=== PATIENT | female | born 1990 | race Caucasian/White ===

== ENCOUNTER 2016-11-30 19:10 | Emergency (ER) | payer OTHER ==
[~2016-11-30] VITALS: Ht 177.8 cm; Wt 118.2 kg
[~2016-11-30 19:10] MED LIST: ALBU8.5H4 IH; BUPR1FIL3 SL
[2016-11-30 19:39] VITALS: BP 139/86; PULSE 83; RESP 16; O2SAT 97
[2016-11-30 20:58] LABS: APPEARANCE,URINE CLEAR (CLEAR,HAZY); COLOR,URINE ORANGE (YELLOW)
[2016-11-30 21:04] LABS: BASOPHILS % (AUTO) 0.3 % (0-3); EOSINOPHILS % (AUTO) 0.8 % (0-5); MONOCYTES % (AUTO) 4.4 % (4-12); Mean Corpuscular Hemoglobin 27.9 pg (27.0-35.0); Mean Corpuscular Volume 80.4 fL (81-100); NEUTROPHILS % (AUTO) 53.9 % (40-74); Platelet Count 232 bil/L (150-400)
--- NOTE | 2016-11-30 21:08 | ED.REPORT ---
HPI-Abd Pain F Under 41 Date of Service November 30, 2016 ED Provider: Luciano Brower MD A 25 year old female with a history of asthma and opioid dependence in remission on Suboxone presents to the ED with right flank pain onset three hours ago. The patient also reports fever (high of 102), diaphoresis, dizziness , and nausea currently. She denies vomiting or other symptoms. The patient was seen at Urgent Care yesterday after "a couple of days of not feeling well" and was diagnosed with a UTI. She was placed on Ceftin and Pyridium, which she has taken with no relief. Nursing Notes Stated Complaint: PAIN, FEVER, DIZZY Chief Complaint: Female Abdominal Pain Nursing Notes Reviewed: Yes Allergies: Coded Allergies: No Known Allergies (Verified , 01/14/15) Scheduled Buprenorphine HCl/Naloxone HCl (Suboxone 8 mg-2 mg Sl Film) 1 Each Film 0.5 EACH SL BID Scheduled PRN Albuterol HFA (Albuterol HFA) 8.5 Gm Hfa.aer.ad 2 PUFF IH Q4 PRN PRN For Shortness of Breath General Time Seen by MD: 21:07 Chief Complaint Flank pain right Hx Obtained From: Patient Arrived By: Walk-in Sudden in Onset?: No Onset Occurred: 1 - 4 hours ago Symptom Duration: Since onset Location: : Flank right Quality: Painful Severity: Current: Moderate Severity: Maximum: Moderate Associated with: Reports: Fever, Nausea Pertinent Negative: Relieved by nothing Recent Healthcare: Recent doctor visit Past Medical History Past Medical History Opioid dependence in remission on Suboxone Reports: Asthma Past Surgical History Reports: Cholecystectomy Smoking History Light Tobacco Smoker Social History Alcohol Use: "Social" Drug Use: In recovery, IV drugs Other Social History: Good social support, Lives with parents Ambulatory Status Independent Review of Systems Constitutional: Reports: Fever (High of 102) Respiratory: Denies: Non-productive cough, Shortness of breath GI: Reports: Nausea, Denies: Diarrhea, Vomiting Female: Reports: Flank pain (Right) Complete sys rev & neg: except as marked. Skin: Reports Diaphoresis Neurologic: Reports: Dizziness Physical Exam Initial Vital Signs Vital Signs (First) Date Time Temp Pulse Resp B/P Pulse Ox O2 Delivery O2 Flow Rate FiO2 11/30/16 19:39 37.4 83 16 139/86 97 Room Air Initial VS: Reviewed, Vital signs abnormal Head / Eyes: Atraumatic, Normocephalic ENT: Conjunctiva normal, No scleral icterus Neck: Supple, Full range of motion Neurologic: Alert, Oriented, Nonfocal Psychiatric: Mood/affect normal, Behavior normal, Normal thought content General/Constitutional: Awake, Alert, No acute distress Respiratory / Chest: Breath sounds NL, Breath sounds = bilat, No respiratory distress Cardiovascular: Heart rate NL, Regular rhythm, Heart sounds NL Abdomen: Soft Tenderness/Guarding/Rebound: Positive: Tender RLQ... (Mild), Tender RUQ... ( Mild) Back: Atraumatic, Full range of motion Flank / Spine / Paraspinal: Positive: Flank tender R Skin: Warm Color / Condition: Positive: Diaphoresis present Interpretation & Diagnostics URINE : Negative Urine sent to lab Lab Results Interpretation Result Diagram: 11/30/16205111/30/162051 Test 11/30/16 20:45 11/30/16 20:52 Urine Color [place] (YELLOW) Urine Appearance Clear (CLEAR,HAZY) Urine pH (5.0-8.0) Urine Specific [place] 1.024 (1.003-1.035) Urine Protein mg/dL (NEG,TRACE) Urine Glucose (UA) mg/dL (NEGATIVE) Urine Ketones mg/dL (NEGATIVE) Urine Occult Blood (NEGATIVE) Urine Nitrite (NEGATIVE) Urine Bilirubin (NEGATIVE) Urine Urobilinogen mg/dL (NORMAL) Urine Leukocyte Esterase (NEGATIVE) Urine RBC 0-2/hpf (0-2) Urine WBC 0-5/hpf (0-5) Urine Epithelial Cells Many/hpf (NONE-MOD) Urine Crystals None seen (NONE SEEN) Urine Bacteria Moderate/hpf (NONE-FEW) Urine Hyaline Casts None/lpf (NONE) Urine Granular Casts None seen (NONE SEEN) Urine Waxy Casts None seen (NONE SEEN) Urine Red Blood Cell Casts None seen (NONE SEEN) Urine White Blood Cell Casts None seen (NONE SEEN) Urine Mucus None seen (None Seen) Urine Trichomonas None seen (NONE SEEN) Urine Yeast None (NONE SEEN) Urinalysis Comment Color interference Urine Culture Reflexed Indicated White Blood Count 8.0th/mm3 (3.8-10.1) Red Blood Count 5.20mil/mm3 (3.90-5.20) Hemoglobin 14.5g/dL (12.0-15.6) Hematocrit 41.8% (35.0-46.0) Mean Corpuscular Volume 80.4fL (81-100) Mean Corpuscular Hemoglobin 27.9pg (27.0-35.0) Mean Corpuscular Hemoglobin Concent 34.7% (32.0-37.0) Red Cell Distribution Width 11.9% (12.3-15.4) Platelet Count 232bil/L (150-400) Neutrophils (%) (Auto) 53.9% (40-74) Lymphocytes (%) (Auto) 40.5% (14-46) Monocytes (%) (Auto) 4.4% (4-12) Eosinophils (%) (Auto) 0.8% (0-5) Basophils (%) (Auto) 0.3% (0-3) Sodium Level 137mEq/L (134-144) Potassium Level 3.8mEq/L (3.5-5.2) Chloride Level 99mEq/L (97-108) Carbon Dioxide Level 23mmol/L (18-29) Blood Urea Nitrogen 14mg/dL (6-20) Creatinine 0.80mg/dL (0.57-1.00) Estimat Glomerular Filtration Rate 126mL/min (>59) Glucose Level 104mg/dL (60-99) Calcium Level 9.6mg/dL (8.5-10.1) Magnesium Level 1.9mg/dL (1.6-2.6) Total Bilirubin 0.4mg/dL (0.0-1.2) Aspartate Amino Transf (AST/SGOT) 28U/L (0-50) Alanine Aminotransferase (ALT/SGPT) 33U/L (0-32) Alkaline Phosphatase 70U/L (25-150) Total Protein 8.1g/dL (6.4-8.4) Albumin 4.6g/dL (3.4-5.0) Lipase 35U/L (13-60) Hold Villanueva Top Tube Received (Received) Lab values outside NL range: no clinical significance. Re-Eval/Medical Decision Med Decision/Clinical Course 25-year-old female who was diagnosed yesterday with UTI. Cultures are not available yet. Today she has had some fever and chills and generalized fatigue. She does not have significant abdominal pain. Her urine is currently clear. She was given a liter fluid and a gram of Rocephin with improvement. She will be discharged home to continue her initial antibiotic and follow up with her primary doctor to check the culture and to recheck how she is doing. Source of Hx: Old records Re-Evaluation/Progress : Time of Eval: 00:30 Patient Status: Condition improved Re-Evaluation/Progress Note: Discussed with patient lab results, diagnosis, and plan for discharge. Follow-up and return to the ER instructions given. Patient agrees with plan for care and all questions were addressed. Counseled Regarding: Diagnosis, Lab results, Need for follow-up, When/why to return to ED Discharge & Departure Primary Impression: Urinary tract infection Urinary tract infection type: acute cystitis Hematuria presence: without hematuria Qualified Code: N30.00 - Acute cystitis without hematuria Disposition: Home Discharge Condition All VS Reviewed: Yes Condition: Improved Patient Instructions: Urinary Tract Infection in Women (ED) Additional Instructions: The antibiotics you were started on have not had time really to work completely yet. You were given IV Rocephin to further fight the infection. Continue your oral antibiotic. Drink plenty of fluids and Memo juice. Follow-up with your doctor or urgent care to check the culture that was done in the next couple of days if you are not improving to make sure the antibiotic choice was right. Call me at [phone] between the hours of 9 PM and 6 AM for the next couple nights if you have any problems. Return to the ER with new or concerning symptoms including persistent fever or worsening pain. Referrals: Colette Leyva (PCP) [facility] Attestation Portions of this note were transcribed by Hannah Contreras. I, Dr. Brower, personally performed the history, physical exam, and medical decision-making; I reviewed and confirmed the accuracy of the information in the transcribed note. Signed by: Leticia Hurtado, 12/01/2016, 02:00 copies to: Colette Leyva Howard L MD November 30, 2016 21:08 HANNAH CONTRERAS November 30, 2016 21:20
[2016-11-30 21:29] LABS: Magnesium 1.9 mg/dL (1.6-2.6)
[2016-11-30] MEDS ORDERED: cefTRIAXone Inj 2,000 MG in Dextrose 5% Minibag Plus 50 ML IV ONE (23:00)
[2016-11-30] MEDS ORDERED: 0.9% Sodium Chloride 1,000 ML IV ONE (23:09)
[2016-11-30] MEDS ORDERED: Ondansetron 2 mg/mL 2 mL Inj IVPUSH PRN (23:10)
[2016-12-01 00:47] VITALS: BP 128/82; PULSE 76; RESP 14; O2SAT 99
== END 2016-12-01 00:50 | disposition home or self-care (01) ==
LOC: SED 19:10
DX: N30.00 Acute cystitis without hematuria (principal); R50.9 Fever, unspecified; R61 Generalized hyperhidrosis; R42 Dizziness and giddiness; R11.0 Nausea; J45.909 Unspecified asthma, uncomplicated; F17.200 Nicotine dependence, unspecified, uncomplicated
CPT/HCPCS: 36415; 80053; 81000; 81025; 83690; 83735; 85025; 87086; 87088; 96365; 96375; 99284; J0696; J2405; J7030